=== PATIENT | male | born 1940 | race Caucasian/White ===

== ENCOUNTER 2019-05-06 19:54 | Inpatient (IN) | payer MEDICARE, BC ==
[~2019-05-06] VITALS: Ht 182.9 cm; Wt 73.5 kg
--- NOTE | 2019-05-06 20:10 | NUR ---
PT [id number] C/O GENERALIZED WEAKNESS, AND PT STATES BREEN CATHETER IS "CLOGGED." PT AXO3. RESPIRATIONS EVEN AND UNLABORED. PT STATES HE FEELS, "WEAK". PT PUT ON THE EXTERIOR INTERIOR SPECIALIST AND PULSE OX.
[2019-05-06] MEDS ORDERED: IV NS 0.9% 1,000 ML BAG IV ONE ×2 (20:30→22:00)
[2019-05-06 20:52] LABS: BASOPHILS % (AUTO) 0.2 % (0.0-2.0); HEMATOCRIT 43 % (39-51); HEMOGLOBIN 13.9 g/dL (13.5-17.5); LYMPHOCYTES # (AUTO) 0.6 /CMM (0.8-4.8); LYMPHOCYTES % (AUTO) 3.8 % (20.0-44.0); MEAN CORPUSCULAR HGB CONC 33 g/dl (31.0-36.0); MEAN CORPUSCULAR VOLUME 88 fL (80-96); MONOCYTES % (AUTO) 6.5 % (2.0-12.0); NEUTROPHILS # (AUTO) 14.4 /CMM (1.8-8.9); NEUTROPHILS % (AUTO) 89.5 % (43.0-81.0); PLATELET COUNT (AUTO) 225 /CMM (150-450); RED BLOOD CELL COUNT(AUTO) 4.86 MIL/uL (4.5-6.0); WHITE BLOOD COUNT (AUTO) 16.1 K/uL (4.3-11.0)
--- NOTE | 2019-05-06 20:54 | NUR ---
XRAY AT BEDSIDE.
[2019-05-06 21:06] LABS: CALCIUM, SERUM 9.6 mg/dL (8.5-10.1); CARBON DIOXIDE 26 mmol/L (21-32); CHLORIDE 106 mmol/L (98-107); CREATININE 1.8 mg/dL (0.6-1.3); GLUCOSE 123 mg/dL (74-106); POTASSIUM 4.3 mmol/L (3.5-5.1); SODIUM SERUM 145 mmol/L (136-145); UREA NITROGEN, BLOOD 28 mg/dL (7-18)
[2019-05-06 21:15] LABS: ALANINE AMINOTRANSFERASE 24 U/L (12-78); ALKALINE PHOSPHATASE 84 U/L (46-116); ASPARTATE AMINOTRANSFERASE 18 U/L (15-37); BILIRUBIN,DIRECT 0.3 mg/dL (0.0-0.2); BILIRUBIN,TOTAL 1.1 mg/dL (0.2-1.0); LIPASE 74 U/L (73-393); TOTAL PROTEIN, SERUM 7.6 g/dL (6.4-8.2)
--- NOTE | 2019-05-06 21:30 | NUR ---
PT RESTING IN BED, NAD NOTED. WILL CONTINUE TO MONITOR.
[2019-05-06 21:36] LABS: APPEARANCE,URINE TURBID (CLEAR); BILIRUBIN,URINE NEGATIVE (NEGATIVE); BLOOD, URINE 3+ Ery/uL (NEGATIVE); COLOR,URINE DARK YELLO (YELLOW); KETONES,URINE TRACE (NEGATIVE); LEUKOCYTE ESTERASE ,URINE 3+ (NEGATIVE); NITRITE, URINE POSITIVE (NEGATIVE); PH,URINE 8.5 (5.0-8.0); PROTEIN,URINE 3+ mg/dl (NEGATIVE); UGLUCOSE NEGATIVE (NEGATIVE); UROBILINOGEN,URINE 0.2 EU/dL (0.2)
[2019-05-06] MEDS ORDERED: AZITHROMYCIN 500 MG in IV D5W 250 ML IV STA (21:43)
[2019-05-06] MEDS ORDERED: CEFTRIAXONE 1 G in IV D5W 50 ML IV STA (21:43)
[2019-05-06 21:49] LABS: BACTERIA,URINE 4+ /HPF (None Seen); RBC,URINE 81-100 /HPF (0-2); WBC,URINE 81-100 /HPF (0-3)
[2019-05-06 21:50] LABS: SQUAMOUS EPITHELIAL CELL,UR 0-2 /HPF (None Seen)
[2019-05-06] MEDS ORDERED: CEFTRIAXONE 1GM BAG (ER ONLY) 50 ML IV ONE (22:09)
[2019-05-06] MEDS ORDERED: AZITHROMYCIN 500 MG VIAL ONE (22:34)
--- NOTE | 2019-05-06 22:36 | NUR ---
CALLED NURSING SIGN MANUFACTURER FOR TELE BED
--- NOTE | 2019-05-06 23:18 | NUR ---
325-2 TELE - UPDATED BED
--- NOTE | 2019-05-06 23:33 | NUR ---
REPORT GIVEN TO LILLIAN CARRION FOR BRITTANY.
[2019-05-06 23:50] VITALS: BP 144/75
--- NOTE | 2019-05-06 23:50 | NUR ---
AUTOMOTIVE LOT ATTENDANTGARMENT LOOPER NOTES Received patient from ER via [facility] assisted by 2 ER staff. Admitted on TELE 325-2 due to UTI with Sepsis under the service of Dr. Amber Babin. Transferred patient to bed comfortably. Put on O2 via mask @ 4LPM, saturating 91%. With minimal SOB with use of accessory muscles noted. With FC with hematuria noted. With patent peripheral IV line R wrist G#20, SL. Admission routine done. Cleaned up patient, noted with thick skin, dried fecal matter on sacrum, foul smelling. Per patient he lives with sister but he takes care of himself only. Patient is noted with self-care deficit. Admission ordered noted and carried. Kept patient clean, dry and comfortable. Call light within easy reach. Will continue to monitor accordingly.
[2019-05-07] VITALS (7 sets, daily range): BP systolic 114–162; BP diastolic 66–81
[2019-05-07] MEDS ORDERED: ONDANSETRON HCL/PF 4 MG/2 ML VIAL IVP PRN
[2019-05-07] MEDS ORDERED: ZOLPIDEM TARTRATE 5 MG TABLET PO PRN
[2019-05-07] MEDS ORDERED: MAG HYDROX/AL HYDROX/SIMETH 30 ML UDC PO PRN
[2019-05-07] MEDS ORDERED: Z GUARD REMEDY 2 OZ OINT TP PRN
[2019-05-07] MEDS: IV NS 0.9% 1,000 ML IV PRN ×2 (00:08→12:10)
[2019-05-07 06:13] LABS: ALANINE AMINOTRANSFERASE 17 U/L (12-78); ALBUMIN 2.9 g/dL (3.4-5.0); ALKALINE PHOSPHATASE 62 U/L (46-116); ASPARTATE AMINOTRANSFERASE 18 U/L (15-37); CALCIUM, SERUM 8.3 mg/dL (8.5-10.1); CARBON DIOXIDE 23 mmol/L (21-32); CHLORIDE 112 mmol/L (98-107); CREATININE 1.3 mg/dL (0.6-1.3); GLUCOSE 107 mg/dL (74-106); MAGNESIUM 1.8 mg/dL (1.8-2.4); POTASSIUM 3.8 mmol/L (3.5-5.1); SODIUM SERUM 147 mmol/L (136-145); TOTAL PROTEIN, SERUM 5.7 g/dL (6.4-8.2); UREA NITROGEN, BLOOD 25 mg/dL (7-18)
[2019-05-07 06:16] LABS: BASOPHILS % (AUTO) 0.2 % (0.0-2.0); EOSINOPHILS % (AUTO) 0.2 % (0.0-6.0); HEMATOCRIT 37 % (39-51); HEMOGLOBIN 12.1 g/dL (13.5-17.5); LYMPHOCYTES # (AUTO) 1.1 /CMM (0.8-4.8); LYMPHOCYTES % (AUTO) 9.9 % (20.0-44.0); MEAN CORPUSCULAR HGB CONC 33 g/dl (31.0-36.0); MEAN CORPUSCULAR VOLUME 88 fL (80-96); MONOCYTES # (AUTO) 0.8 /CMM (0.1-1.30); MONOCYTES % (AUTO) 6.6 % (2.0-12.0); NEUTROPHILS # (AUTO) 9.7 /CMM (1.8-8.9); NEUTROPHILS % (AUTO) 83.1 % (43.0-81.0); PLATELET COUNT (AUTO) 168 /CMM (150-450); RED BLOOD CELL COUNT(AUTO) 4.13 MIL/uL (4.5-6.0); WHITE BLOOD COUNT (AUTO) 11.6 K/uL (4.3-11.0)
[2019-05-07 06:25] LABS: CHOLESTEROL 164 mg/dL (<200); HDL CHOLESTEROL 44 mg/dL (40-60); LDL 109 mg/dL (0-99); TRIGLYCERIDES 52 mg/dL (30-150)
--- NOTE | 2019-05-07 06:51 | NUR ---
BOW REPAIRER CUSTOM CLOSING NOTES Patient asleep with O2 mask @ 4LPM, no SOB/respiratory distress noted. No new complaints made. All due meds given as ordered, no ASE noted. With FC indwelling well, with hematuria noted 1000cc within the shift. Kept clean, dry and comfortable. Call light within easy reach. Endorsed to the next shift. Addendum: 05/07/19 at 0652 by LILLIAN [place] RN On tele monitor with SR with inverted T-wave.
[2019-05-07] MEDS ORDERED: METO-357 PO (07:31)
[2019-05-07] MEDS ORDERED: WARF-58 PO (07:31)
[2019-05-07] MEDS ORDERED: DILT240C2 PO (07:31)
--- NOTE | 2019-05-07 07:46 | NUR ---
CLEAN RICE GRADER AND REEL TENDER OPENING NOTES RECEIVED PATIENT ASLEEP IN BED. NO ACUTE SIGNS OF DISTRESS. ON OXYGEN 4L VIA FACE MASK, BREATHING EVEN AND UNLABORED. ON TELE MONITORING WITH CURRENT READING OF SR WITH INVERTED T-WAVE WITH HR OF 70'S, NO C/O CARDIAC DISTRESS VOICED AT THIS TIME. IV ACCESS ON RIGHT WRIST #20 INTACT AND PATENT IVF OF NS @100 ML/HR INFUSING, NO S/S OF INFILTRATION AT SITE NOTED. PATIENT WITH BREEN CATHETER IN PLACE, REMAINS WITH HEMATURIA NOTED. SAFETY MEASURES IN PLACE. BED IN LOW LOCKED POSITION WITH SIDE RAILS UP X2. CALL LIGHT WITHIN EASY REACH. WILL CONTINUE TO MONITOR PT ACCORDINGLY.
--- NOTE | 2019-05-07 09:45 | NUR ---
RN NOTES SPO2 CHECKED AND NOTED 99% ON FACE MASK @4L/PM. NO SOB NOTED. PATIENT WAS PLACED TO NC @4LPM. TOLERATING WELL WITH SPO2 OF 96-98% AT THIS TIME. WILL CONTINUE TO MONITOR.
--- NOTE | 2019-05-07 12:15 | NUR ---
RN NOTES PATIENT WAS SEEN BY DR. PIERRE, INFORMED THAT PATIENT HAD MILD HEMATURIA AND INR OF 3.09 THIS MORNING, ASKED IF TO CONTINUE WARFARIN PO DAILY AND SAID YES AND TO FLUSH F/C PRN. INFORMED ALSO DR TO DO MED RECON. WILL CONTINUE TO MONITOR.
--- NOTE | 2019-05-07 12:58 | NUR ---
RN NOTES PATIENT REQUESTED A COPY OF BLOOD WORKS AND URINALYSIS RESULTS, AUTHORIZATION TO RELEASE MEDICAL RECORD OBTAINED AND SIGNED BY PATIENT.
--- NOTE | 2019-05-07 13:15 | NUR ---
RN NOTES FLUSHED F/C, NO HEMATURIA NOTED. WILL CONTINUE TO MONITOR.
--- NOTE | 2019-05-07 15:37 | NUR ---
RN NOTES PT/OT CAME TO DO EVALUATION BUT HELD EVALUATION DUE TO HIGH AND UPTREND TROPONIN LEVEL UPON CHART REVIEW. WILL CONTINUE TO MONITOR.
--- NOTE | 2019-05-07 16:14 | NUR ---
RN NOTES PATIENT NOTED WITH BP OF 162/81 MMHG AND SPO2 OF 88% ON NC 4L, PATIENT PLACED ON FACE MASK @4LPM SPO2 WENT UP TO 91-92%. MD MADE AWARE WITH ORDERS TO GIVE NORVASC 10 MG PO, 1ST DOSE NOW AND DAILY. WILL CONTINUE TO MONITOR.
[2019-05-07] MEDS: AMLODIPINE BESYLATE 10 MG TABLET PO SCH (16:31)
[2019-05-07] MEDS: WARFARIN SODIUM 1 MG TABLET PO SCH (16:33)
[2019-05-07] MEDS: ACETAMINOPHEN 325 MG TABLET PO PRN (17:05)
--- NOTE | 2019-05-07 18:54 | NUR ---
MILITARY COOK CLOSING NOTES PATIENT AWAKE AND RESTING IN BED AT MODERATE HIGH BACK REST POSITION. A/O X3. ABLE TO MAKE NEEDS KNOWN. SISTER ON BEDSIDE. ON FACE MASK 4LPM WITH SPO2 OF 95% TOLERATING WELL WITH NO SOB NOTED AT THIS TIME. IV ACCESS ON RIGHT WRIST G#20 PATENT AND INTACT, NS @100 ML/HR INFUSING WELL, NO S/S OF INFILTRATION NOTED. ON TELE MONITORING WITH SR WITH INVERTED T-WAVE, HR ON 80'S/ NO CARDIAC DISTRESS VOICED. PATIENT WITH F/C, PATENT AND INTACT, MILD HEMATURIA NOTED. BREEN CARE DONE. ALL NEEDS AND CARE ATTENDED WELL. SAFETY MEASURES KEPT IN PLACE. BED IN LOW LOCKED POSITION WITH SIDE RAILS X2. BEDSIDE TABLE AND CALL LIGHT WITHIN REACH. WILL ENDORSE TO TRACK LAYER HEAD NURSE FOR BRITTANY.
[2019-05-07] MEDS: CEFTRIAXONE 1 G in IV D5W 50 ML IV SCH (20:38)
[2019-05-07 23:10] LABS: ABG BASE EXCESS -4.3 mmol/L; ABG OXYGEN SATURATION 96.1 % (92.0-98.5); ABG PCO2 23.4 mmHg (35.0-45.0); ABG PH 7.484 (7.350-7.450); AaDO2 607.6 mmHg; COHb 0.4 % (0.5-1.5); MetHb 0.7 % (0.0-1.5); SITE, ABG Left Radial; VENT MODE, BG 100% NON REBREATHER
--- NOTE | 2019-05-07 23:15 | NUR ---
TELE CIGARETTE PACKAGE EXAMINER INITIAL NOTES RECEIVED REPORT FROM REGISTRY NURSE MIRNA FOR CONTINUITY OF CARE. SEEN PT IN BED RESTING WITH [id number] MASK ON 10 LITERS AND 98 % O2 SAT. TELE SINUS RHYTHM WITH PA'CS AND PVC'S HEART RATE 78 PER MONITOR. STAT ABG ORDERED BY THE CHARGE NURSE AND RESULT CAME OUT AND NOTIFY CELL ROOM SUPERVISOR MD. GOT ORDERED TO CONTINUE NON-RE -BREATHER MASK FOR NOW AND NEURO CHECKED Q 2HRS AND RE- CHECK THE ABG AFTER 3 HRS. KEPT HIM COMFORTABLE AT ALL TIMES. PLACE CALL LIGHT AT REACH. WILL CONTINUE MONITORING.
--- NOTE | 2019-05-07 23:35 | NUR ---
RN NOTES PAGED DR. DE LOS SANTOS AND INFORMED HIM THE RESULT OF ABG'S , PT. pCO2 IS 23.4 ON NON-REBREATHER, DR. DE LOS SANTOS ORDER TO REPEAT ABG'S AFTER 2-3 HRS AND NEURO CHECK EVERY 2 HRS. AND KEEP O2 SAT 95%... ORDER NOTED AND CARRIED OUT
--- NOTE | 2019-05-08 00:25 | NUR ---
TELE COMPOSITION ROOFER NOTES CHECKED PT HE'S AWAKE AND ALERT STILL ON NON-RE BREATHER MASK O2 SAT 95 % . STILL COUGHING ON AND OFF AND VITAL SIGNS FF BP 178/89 , PULSE 102 TEMP 98.4 RESPIRATION 22 . SKIN WARM TO TOUCH. NOTIFY TUCKING MACHINE OPERATOR MD.
[2019-05-08 00:26] VITALS: BP 178/89
[2019-05-08 00:30] VITALS: BP 184/95
--- NOTE | 2019-05-08 00:55 | NUR ---
TELE SUPERVISOR FUR FLOOR WORKER NOTES GOT ORDERED FROM DR MCGILL NOTED AND CARRIED OUT. CLONIDINE PO GIVEN 0.1 MG ORDERED. BP 189/98 HEART RATE 102. PT TOLERATED WELL NO ASPIRATION NOTED. WILL CONTINUE MONITORING.
[2019-05-08] MEDS ORDERED: CLONIDINE HCL 0.1 MG TABLET PO PRN (01:00)
[2019-05-08 03:02] LABS: ABG BASE EXCESS -1.6 mmol/L; ABG OXYGEN SATURATION 97.4 % (92.0-98.5); ABG PCO2 28.3 mmHg (35.0-45.0); ABG PH 7.483 (7.350-7.450); ABG PO2 97.2 mmHg (75.0-100.0); AaDO2 587.5 mmHg; COHb 0.4 % (0.5-1.5); MetHb 0.5 % (0.0-1.5); O2Hb 96.5 % (94.0-97.0); SITE, ABG Left Radial; VENT MODE, BG 100% NON REBREATHER
[2019-05-08 04:00] VITALS: BP 145/87
--- NOTE | 2019-05-08 04:00 | NUR ---
TELE CRYSTAL GROWING TECHNICIAN NOTES RE- CHECKED VITAL SIGNS FF. BP 145/87, PULSE 80, RESP 20, TEMP 98.2 AND O2 SAT 97%. PT RESTING WITH EYES CLOSED BUT STILL ON NON-REBREATHER MASK. KEPT HIM COMFORTABLE AT ALL TIMES.
--- NOTE | 2019-05-08 05:30 | NUR ---
RN NOTES spoke to Dr. Babin and informed him the result of patient ABG'S pCO2- from 23.4 - 28.3 and RT is suggesting if we can try to put patient on HI flow because pt. is on non-rebreather.. Dr Babin gave us an order.. order noted and carried out
--- NOTE | 2019-05-08 06:00 | NUR ---
TELE METALWORKER NOTES MORNING CARE DONE WELL SKIN TREATMENT , NO SIGNS OF ANY DISTRESS NOTED , PT STILL ON NON-REBREATHER MASK .AFTER CHARGE NURSE SPOKE TO DR MCGILL RESPIRATORY THERAPY CAME TO START THE HIGH FLOW O2 ORDERED AFTER SECOND ABG TEST DONE. BUT PATIENT STILL ON LOW OXYGEN LEVEL SO THEY DECIDED TO PUT THE NON-REBREATHER MASK , CHARGE NURSE RICKEY AWARE. KEPT PT ON SEMI FOWLERS POSITION . TELE SINUS RHYTHM WITH PVC'S WITH PAC'S . WILL CONTINUE MONITORING.
[2019-05-08 06:49] LABS: BASOPHILS % (AUTO) 0.2 % (0.0-2.0); EOSINOPHILS % (AUTO) 0.1 % (0.0-6.0); HEMATOCRIT 35 % (39-51); HEMOGLOBIN 11.3 g/dL (13.5-17.5); LYMPHOCYTES # (AUTO) 0.9 /CMM (0.8-4.8); LYMPHOCYTES % (AUTO) 7.6 % (20.0-44.0); MEAN CORPUSCULAR HGB CONC 33 g/dl (31.0-36.0); MEAN CORPUSCULAR VOLUME 89 fL (80-96); MONOCYTES # (AUTO) 0.6 /CMM (0.1-1.30); MONOCYTES % (AUTO) 4.9 % (2.0-12.0); NEUTROPHILS # (AUTO) 10.4 /CMM (1.8-8.9); NEUTROPHILS % (AUTO) 87.2 % (43.0-81.0); PLATELET COUNT (AUTO) 144 /CMM (150-450); RED BLOOD CELL COUNT(AUTO) 3.91 MIL/uL (4.5-6.0); WHITE BLOOD COUNT (AUTO) 11.9 K/uL (4.3-11.0)
[2019-05-08 06:55] LABS: ALANINE AMINOTRANSFERASE 17 U/L (12-78); ALBUMIN 2.5 g/dL (3.4-5.0); ALKALINE PHOSPHATASE 55 U/L (46-116); ASPARTATE AMINOTRANSFERASE 38 U/L (15-37); BILIRUBIN,TOTAL 1.2 mg/dL (0.2-1.0); CALCIUM, SERUM 7.6 mg/dL (8.5-10.1); CARBON DIOXIDE 24 mmol/L (21-32); CHLORIDE 110 mmol/L (98-107); GLUCOSE 120 mg/dL (74-106); MAGNESIUM 1.6 mg/dL (1.8-2.4); PHOSPHORUS 2.5 mg/dL (2.5-4.9); POTASSIUM 3.7 mmol/L (3.5-5.1); SODIUM SERUM 143 mmol/L (136-145); TOTAL PROTEIN, SERUM 5.4 g/dL (6.4-8.2); UREA NITROGEN, BLOOD 15 mg/dL (7-18)
--- NOTE | 2019-05-08 07:27 | NUR ---
TELE PLASMA TABLE OPERATOR CLOSING NOTES PT RESTING COMFORTABLY IN BED WITHOUT ANY DISTRESS NOTED. IVF NS AT 100ML/HR INFUSING ON HIS RIGHT FOREARM, PATENT AND INTACT. ALL DUE MEDS GIVEN AND ALL NEEDS MET. TELE SINUS RHYTHM WITH PVC'S AND PAC'S PER MONITOR. BREEN TO GRAVITY WITH ARNULFO COLORED URINE . KEPT HIM WARM AND COMFORTABLE AT ALL TIMES. KEPT HIM ON HOB ELEVATED WITH SIDE RAILS UP AND PLACE CALL LIGHT AT REACH,. ENDORSE TO AM NURSE FOR CONTINUITY OF CARE.
--- NOTE | 2019-05-08 07:28 | NUR ---
DIRECT CARE WORKER OPENING NOTES PATIENT AWAKE AND RESTING IN BED AT MODERATE HIGH BACK REST POSITION. A/O X3. ON NON-REBREATHER MASK 15LPM WITH SPO2 OF 99 - 100% TOLERATING WELL WITH NO SOB NOTED AT THIS TIME. IV ACCESS ON RIGHT WRIST G#20 PATENT AND INTACT, NS @100 ML/HR INFUSING WELL, NO S/S OF INFILTRATION NOTED. ON TELE MONITORING WITH SR WITH PVC'S WITH PAC'S, HR ON 70'S/ NO CARDIAC DISTRESS NOTED AT THIS TIME. PATIENT WITH F/C, PATENT AND INTACT, MILD HEMATURIA NOTED. BED IN LOW LOCKED POSITION WITH SIDE RAILS X2. CALL LIGHT WITHIN REACH. WILL CONTINUE TO MONITOR.
[2019-05-08 08:00] VITALS: BP 125/55
[2019-05-08] MEDS: DILTIAZEM HCL CD 240 MG PO SCH (09:00)
[2019-05-08] MEDS ORDERED: WARFARIN SODIUM 5 MG TABLET PO SCH (09:00)
[2019-05-08] MEDS: AMLODIPINE BESYLATE 10 MG TABLET PO SCH (09:00)
[2019-05-08] MEDS: METOPROLOL SUCCINATE 50 MG TAB.SR.24H PO SCH (09:00)
[2019-05-08] MEDS: ACETAMINOPHEN 325 MG TABLET PO PRN (09:27)
[2019-05-08] MEDS: Magnesium 1GM/D5W 100ML PREMIX 100 ML IV SCH ×2 (09:41→10:45)
--- NOTE | 2019-05-08 10:22 | NUR ---
Social service consult requested by Dr. Garcia due to pt. residing alone and is taken care of by the sister. Pt. is a 78 year old male who was admitted to [facility] for sepsis. Pt. resides along and his sister is his caregiver. However, pt's sister is not well medically. Pt. is in need of SNF placement. SW referred consult to machine adjuster leader case trim Maite Castro for SNF placement.
--- NOTE | 2019-05-08 10:51 | NUR ---
RN NOTES PATIENT NOTED WITH LOW MAGNESIUM LEVEL 1.6 TODAY. ADMINISTERED 1 G/100ML IVPB X 2 DOSES. WILL CONTINUE TO MONITOR.
--- NOTE | 2019-05-08 12:07 | NUR ---
WOUND CARE CONSULT: PT EATING AT THIS TIME. SKIN ASSESSMENT TO BE DONE AT ANOTHER TIME. RECOMMENDATIONS MADE FOR SKIN PROTECTION. DISCUSSED WITH NURSING STAFF.
--- NOTE | 2019-05-08 13:15 | NUR ---
RN NOTES F/C CATHETER NOTED WITH LOTS OF SMALL SEDIMENTS AND LIGHT PINKISH COLORED. FLUSH WITH 100 ML OF NS ORDERED PRN. WILL CONTINUE TO MONITOR
--- NOTE | 2019-05-08 14:17 | NUR ---
RN NOTES AUTHORIZATION FOR USE OR DISCLOSURE OF HEALTH INFORMATION UNTIL HE IS DISCHARGE OBTAINED AND SIGNED BY PATIENT, CONSENT PLACED ON PATIENT CHART.
[2019-05-08] MEDS: IV NS 0.9% 1,000 ML IV PRN (15:41)
[2019-05-08 16:00] VITALS: BP 128/82
--- NOTE | 2019-05-08 16:07 | NUR ---
RN NOTES X-RAY RESULTS RECEIVED AND DR. PIERRE WAS INFORMED. NO NEW ORDERS AT THIS TIME. WILL CONTINUE TO MONITOR.
[2019-05-08] MEDS: WARFARIN SODIUM 1 MG TABLET PO SCH (16:57)
[2019-05-08] MEDS ORDERED: AZITHROMYCIN 250 MG TABLET PO ONE (17:00)
--- NOTE | 2019-05-08 18:33 | NUR ---
MS RN CLOSING NOTES PATIENT AWAKE AND RESTING IN BED AT MODERATE HIGH BACK REST POSITION. A/O X3. SISTER ON BEDSIDE. ON NON-REBREATHER MASK 10LPM WITH SPO2 OF 96% TOLERATING WELL WITH NO SOB NOTED AT THIS TIME. IV ACCESS ON RIGHT WRIST G#20 PATENT AND INTACT, NS @100 ML/HR INFUSING WELL, NO S/S OF INFILTRATION NOTED. PATIENT WITH F/C, PATENT AND INTACT, CLOUDY AND SEDIMENTS NOTED. BED IN LOW LOCKED POSITION WITH SIDE RAILS X2. CALL LIGHT WITHIN REACH. WILL ENDORSE TO MILL RECORDER NURSE FOR BRITTANY.
--- NOTE | 2019-05-08 19:05 | NUR ---
RN PM OPENING NOTE BEDSIDE REPORT RECIEVED FROM BRENT PEREZ RN. PATIENT AWAKE AND RESTING IN BED AT MODERATE HIGH BACK REST POSITION. A/O X3. SISTER ON BEDSIDE. ON NON-REBREATHER MASK 10LPM WITH SPO2 OF 96% TOLERATING WELL WITH NO SOB NOTED AT THIS TIME. POC REVIEWED QUESTIONS CONCERNS ADDRESSED. IV ACCESS ON RIGHT WRIST G#20 PATENT AND INTACT INFUSING NS @100 ML/HR NO S/S OF INFILTRATION NOTED. PATIENT WITH F/C, URINE APPEARS CLOUDY WITH SEDIMENTS PINK. BED IN LOW LOCKED POSITION WITH SIDE RAILS X2. CALL LIGHT WITHIN REACH. VERBALIZED UNDERSTANDING TO CALL FOR ASSISTNACE NEEDED.
[2019-05-08 20:00] VITALS: BP 134/71
[2019-05-08] MEDS: CEFTRIAXONE 1 G in IV D5W 50 ML IV SCH (22:26)
--- NOTE | 2019-05-08 22:56 | NUR ---
non rebreather removed placed on oxygen nc 3 lnc atient found in room wiht non rebreather mask off denid sob. oxygen non rebreather reapplied patient saturating at 99%. nc applied and set to 3lnc patient is saturating at 92% with those settings. will cont to monitor.
[2019-05-09] VITALS (11 sets, daily range): BP systolic 128–144; BP diastolic 70–91
[2019-05-09] MEDS: IV NS 0.9% 1,000 ML IV PRN ×2 (02:38→19:37)
--- NOTE | 2019-05-09 02:52 | NUR ---
spo2 93% on 3lnc. patient denes sob.
[2019-05-09] MEDS: ACETAMINOPHEN 325 MG TABLET PO PRN ×2 (05:45→17:20)
[2019-05-09 07:19] LABS: BASOPHILS % (AUTO) 0.5 % (0.0-2.0); EOSINOPHILS % (AUTO) 2.1 % (0.0-6.0); HEMATOCRIT 30 % (39-51); HEMOGLOBIN 10.1 g/dL (13.5-17.5); LYMPHOCYTES # (AUTO) 0.7 /CMM (0.8-4.8); LYMPHOCYTES % (AUTO) 7.5 % (20.0-44.0); MEAN CORPUSCULAR HGB CONC 34 g/dl (31.0-36.0); MEAN CORPUSCULAR VOLUME 87 fL (80-96); MONOCYTES # (AUTO) 0.5 /CMM (0.1-1.30); MONOCYTES % (AUTO) 5.7 % (2.0-12.0); NEUTROPHILS # (AUTO) 7.4 /CMM (1.8-8.9); NEUTROPHILS % (AUTO) 84.2 % (43.0-81.0); PLATELET COUNT (AUTO) 131 /CMM (150-450); RED BLOOD CELL COUNT(AUTO) 3.43 MIL/uL (4.5-6.0); WHITE BLOOD COUNT (AUTO) 8.7 K/uL (4.3-11.0)
--- NOTE | 2019-05-09 07:30 | NUR ---
BEDSIDE REPORT GIVEN TO EMILIA CARRION. PATIENT SEEN IN BED WITH EYES CLOSED. IV INFUSING TO RIGHT HAND 20 GAUGE. PATIENT IN NO APPAREN DISTRESS. BREATHING IS EVEN AND UNLABORED. Addendum: 05/09/19 at 0750 by TASH WHEELER RN NOTE WRITTEN ON WRONG PATIENT.
--- NOTE | 2019-05-09 07:31 | NUR ---
BEDSIDE REPORT GIVEN TO EMILIA CARRION. PATIENT SEEN IN BED WITH EYES CLOSED. IV INFUSING TO RIGHT HAND 20 GAUGE. PATIENT IN NO APPAREN DISTRESS. BREATHING IS EVEN AND UNLABORED. ON 3LNC . BED DOWN LOCKED SRX3. FALL ALARM IS ACTIVE.
[2019-05-09 07:35] LABS: CALCIUM, SERUM 7.4 mg/dL (8.5-10.1); CARBON DIOXIDE 20 mmol/L (21-32); CHLORIDE 106 mmol/L (98-107); GLUCOSE 135 mg/dL (74-106); PHOSPHORUS 1.9 mg/dL (2.5-4.9); POTASSIUM 3.3 mmol/L (3.5-5.1); SODIUM SERUM 137 mmol/L (136-145); UREA NITROGEN, BLOOD 15 mg/dL (7-18)
--- NOTE | 2019-05-09 08:00 | NUR ---
MS RN OPENING NOTES Received Patient resting and asleep in bed. A/O x 3. VS stable with no acute distress. Breathing even and unlabored on 3LPM via NC with no respiratory distress. No signs and symptoms of pain. Pittman Cath in place and operational with clear sukh coloured urine output noted. 20g PIV on RIGHT HAND clean, dry, intact and flushing well with IVF NS running at 100ml/hr. Safety precautions in place. Bed locked and set to lowest position with side rails x 2 up. Will continue to monitor.
[2019-05-09] MEDS ORDERED: POTASSIUM PHOSPHATE MM 15 MMOL in IV D5W 250 ML IV SCH (08:30)
[2019-05-09] MEDS: AMLODIPINE BESYLATE 10 MG TABLET PO SCH (08:51)
[2019-05-09] MEDS: DILTIAZEM HCL CD 240 MG PO SCH (08:51)
[2019-05-09] MEDS: METOPROLOL SUCCINATE 50 MG TAB.SR.24H PO SCH (08:52)
[2019-05-09] MEDS: POTASSIUM PHOSPHATE MM 7.5 MMOL in IV D5W 100 ML IV SCH ×2 (09:45→12:58)
[2019-05-09] MEDS: WARFARIN SODIUM 1 MG TABLET PO SCH (17:09)
[2019-05-09] MEDS: AZITHROMYCIN 250 MG TABLET PO SCH (17:09)
[2019-05-09] MEDS: LACTOBACILLUS RHAMNOSUS GG 1 EACH CAP.SPRINK PO SCH (17:10)
--- NOTE | 2019-05-09 17:25 | NUR ---
MS RN NOTES Noted Auxillary Temp of 100.4F. Administered 650mg Tylenol at this time. Will continue to monitor.
--- NOTE | 2019-05-09 18:21 | NUR ---
MS RN NOTES Patient SPO2 90% on 10LPM via simple mask. RR-20 BP-147/79 HR-80. Unable to titrate- SPO2 87% on 6LPM. Notified Radha ZHANG. ordered Telemonitoring and ABG labs. Order noted and carried out. Telemonitor reading SR with PAC, HR-87. Temp improved at 98.4F. MD notified of temp as well. Family and friend at bedside. Will continue to monitor.
[2019-05-09 18:56] LABS: ABG BASE EXCESS -3.6 mmol/L; ABG PCO2 22.9 mmHg (35.0-45.0); ABG PH 7.509 (7.350-7.450); ABG PO2 50.2 mmHg (75.0-100.0); AaDO2 639.9 mmHg; COHb 0.3 % (0.5-1.5); MetHb 0.6 % (0.0-1.5); O2Hb 87.2 % (94.0-97.0); SITE, ABG Left Radial
--- NOTE | 2019-05-09 19:02 | NUR ---
MS RN NOTES Notified Radha ZHANG of ABG results and Telemonitor. Fio2 100% and Po2-50. Per , transfer to ICU.
--- NOTE | 2019-05-09 19:25 | NUR ---
SEA AIR LAND OFFICER RCD PT FROM 3W PER REPORT PT NEEDS TO BE PLACED ON HI FLOW OXYGEN. PT IS A/O x2; EXPLAINED PLAN OF CARE TO PT. NSR W/MULT PAC ON MONITOR. SKIN INTACT. CALLED RT FOR HI FLOW.
--- NOTE | 2019-05-09 19:28 | NUR ---
MS CISCO CERTIFIED NETWORK ASSOCIATE NOTES Report given to Esmer CARRION. Transferred Patient to ICU via ACLS. Last VS taken BP-143/80 HR-80 RR-22 Temp-101.5 SPO2 90% on 10LPM via Simple Mask. Patient awake, alert and oriented in ICU. Chart handed to Esmer CARRION.
--- NOTE | 2019-05-09 19:30 | NUR ---
CARPET CLEANING TECHNICIAN PT PLACED ON HIGH FLOW OXYGEN BY RT.
--- NOTE | 2019-05-09 19:45 | NUR ---
REHABILITATION CENTER MANAGER RCD PT HL RESTARTED NS @ 100 ML/HR.
[2019-05-09] MEDS: CEFTRIAXONE 1 G in IV D5W 50 ML IV SCH (21:15)
[2019-05-10] VITALS (27 sets, daily range): BP systolic 116–165; BP diastolic 63–95
[2019-05-10] MEDS: ACETAMINOPHEN 325 MG TABLET PO PRN ×2 (03:32→19:05)
[2019-05-10 04:37] LABS: BASOPHILS # (AUTO) 0.1 /CMM (0.0-0.2); BASOPHILS % (AUTO) 0.5 % (0.0-2.0); EOSINOPHILS % (AUTO) 1.6 % (0.0-6.0); HEMATOCRIT 33 % (39-51); HEMOGLOBIN 11.1 g/dL (13.5-17.5); LYMPHOCYTES # (AUTO) 0.7 /CMM (0.8-4.8); LYMPHOCYTES % (AUTO) 5.9 % (20.0-44.0); MEAN CORPUSCULAR HGB CONC 34 g/dl (31.0-36.0); MEAN CORPUSCULAR VOLUME 87 fL (80-96); MONOCYTES # (AUTO) 0.8 /CMM (0.1-1.30); MONOCYTES % (AUTO) 7.2 % (2.0-12.0); NEUTROPHILS # (AUTO) 9.7 /CMM (1.8-8.9); NEUTROPHILS % (AUTO) 84.8 % (43.0-81.0); PLATELET COUNT (AUTO) 174 /CMM (150-450); RED BLOOD CELL COUNT(AUTO) 3.78 MIL/uL (4.5-6.0); WHITE BLOOD COUNT (AUTO) 11.4 K/uL (4.3-11.0)
[2019-05-10 04:53] LABS: CALCIUM, SERUM 7.8 mg/dL (8.5-10.1); CARBON DIOXIDE 20 mmol/L (21-32); CHLORIDE 106 mmol/L (98-107); CREATININE 0.8 mg/dL (0.6-1.3); GLUCOSE 111 mg/dL (74-106); MAGNESIUM 1.7 mg/dL (1.8-2.4); PHOSPHORUS 2.7 mg/dL (2.5-4.9); POTASSIUM 3.6 mmol/L (3.5-5.1); SODIUM SERUM 138 mmol/L (136-145); UREA NITROGEN, BLOOD 17 mg/dL (7-18)
[2019-05-10] MEDS: IV NS 0.9% 1,000 ML IV PRN (05:59)
[2019-05-10] MEDS: Magnesium 1GM/D5W 100ML PREMIX 100 ML IV SCH ×2 (08:26→09:40)
[2019-05-10] MEDS: FUROSEMIDE 40 MG/4 ML VIAL IV SCH ×3 (08:26→16:10)
[2019-05-10] MEDS: AMLODIPINE BESYLATE 10 MG TABLET PO SCH (08:27)
[2019-05-10] MEDS: LACTOBACILLUS RHAMNOSUS GG 1 EACH CAP.SPRINK PO SCH ×2 (08:27→16:10)
[2019-05-10] MEDS: DILTIAZEM HCL CD 240 MG PO SCH (08:28)
[2019-05-10] MEDS: POTASSIUM CHLORIDE 20 MEQ TAB.PRT.SR PO SCH ×3 (08:31→12:43)
[2019-05-10] MEDS: METOPROLOL SUCCINATE 50 MG TAB.SR.24H PO SCH (10:02)
--- NOTE | 2019-05-10 11:50 | NUR ---
WOUND CARE CONSULT: PT PRESENTS WITH SACRAL SCARRING AND VERY LONG, THICKENED SHARP TOENAILS, PRESENT ON ADMISSION. RECOMMENDATIONS MADE FOR SKIN PROTECTION. DISCUSSED WITH NURSING STAFF. DR JAIMES AWARE OF REQUEST FOR DPM CONSULT/NAIL CARE. WILL SEE PRN. CURRENT ANDREW SCORE IS 18. MD IN AGREEMENT WITH PLAN OF CARE. Addendum: 05/10/19 at 1151 by LATANYA ABBOTT WNDNU Amended: Links added.
--- NOTE | 2019-05-10 15:44 | NUR ---
RN NOTES 0730-RECEIVED PATIENT FROMR N. PATIENT RESPOND TO VOICE, ORIENTED TO PLACE. DENIES PAIN.REMAINS ON HIGH FLOW 02 (60L/70%). DEEP BREATHING ENCOURAGED.IVF ONGOING, SEEN BY DR. RICARDO MD WITH ORDERS. 1200-PATIENT WITH GOOD DIURESIS NOTED.SISTER AT BEDSIDE, UPDATED HER OF PATIENT STATUS.
[2019-05-10] MEDS: AZITHROMYCIN 250 MG TABLET PO SCH (16:14)
[2019-05-10] MEDS: WARFARIN SODIUM 1 MG TABLET PO SCH (17:40)
[2019-05-10] MEDS: MAGNESIUM HYDROXIDE 30 ML UDC PO PRN (18:22)
--- NOTE | 2019-05-10 19:14 | NUR ---
RN NOTES 1500-HIS SISTER IN THE ROOM ALL TIMES, UPDATED HER OF PATIENT STATUS. PATIENT REMAINS ON HIGH FLOW OXYGEN. DENIES PAIN. 1700-AFEBRILE. 1900-PATIENT AWAKE, DENIES PAIN. REPORT GIVEN TO RN FOR FURTHER CARE
[2019-05-10] MEDS: CEFTRIAXONE 1 G in IV D5W 50 ML IV SCH (21:00)
[2019-05-10] MEDS: GUAIFENESIN/D-METHORPHAN HB 5 ML UDC PO PRN (21:48)
--- NOTE | 2019-05-10 22:12 | NUR ---
PT RECEIVED AWAKE ON HFNC 60L, 60% FIO2. NO DISTRESS. PT TOLERATING SETTINGS. WILL CONTINUE TO MONITOR. Addendum: 05/10/19 at 2214 by NATA LOMAX RT Amended: Links added.
[2019-05-11] VITALS (24 sets, daily range): BP systolic 109–147; BP diastolic 42–78
--- NOTE | 2019-05-11 03:42 | NUR ---
STERILE WATER BAG FOR HFNC CHANGED.
[2019-05-11 04:27] LABS: BASOPHILS % (AUTO) 0.6 % (0.0-2.0); EOSINOPHILS % (AUTO) 4.6 % (0.0-6.0); HEMATOCRIT 33 % (39-51); HEMOGLOBIN 11.2 g/dL (13.5-17.5); LYMPHOCYTES % (AUTO) 12.6 % (20.0-44.0); MEAN CORPUSCULAR HGB CONC 34 g/dl (31.0-36.0); MEAN CORPUSCULAR VOLUME 88 fL (80-96); MONOCYTES # (AUTO) 0.6 /CMM (0.1-1.30); MONOCYTES % (AUTO) 8.4 % (2.0-12.0); NEUTROPHILS # (AUTO) 5.6 /CMM (1.8-8.9); NEUTROPHILS % (AUTO) 73.8 % (43.0-81.0); PLATELET COUNT (AUTO) 171 /CMM (150-450); RED BLOOD CELL COUNT(AUTO) 3.76 MIL/uL (4.5-6.0); WHITE BLOOD COUNT (AUTO) 7.5 K/uL (4.3-11.0)
[2019-05-11 04:44] LABS: ALANINE AMINOTRANSFERASE 24 U/L (12-78); ALBUMIN 2.4 g/dL (3.4-5.0); ALKALINE PHOSPHATASE 58 U/L (46-116); ASPARTATE AMINOTRANSFERASE 25 U/L (15-37); CARBON DIOXIDE 29 mmol/L (21-32); CHLORIDE 105 mmol/L (98-107); CREATININE 0.8 mg/dL (0.6-1.3); GLUCOSE 108 mg/dL (74-106); MAGNESIUM 2.1 mg/dL (1.8-2.4); POTASSIUM 3.6 mmol/L (3.5-5.1); SODIUM SERUM 140 mmol/L (136-145); TOTAL PROTEIN, SERUM 5.7 g/dL (6.4-8.2); UREA NITROGEN, BLOOD 19 mg/dL (7-18)
--- NOTE | 2019-05-11 06:35 | NUR ---
DETECTIVE BUREAU CHIEF PT REMAINED ON HI FLOW OXYGEN THERAPY. PT ALERT WITH MOMENTS OF CONFUSION; ATTEMPTED TO GET OOB; REDIRECTED. PT NOTED TALKING AND SEEING THINGS THAT ARE NOT THERE. NSR ON MONITOR. ADEQUATE URINE OUTPUT. NO BM. PRUNE JUICE GIVEN REQUESTED. ROBITUSSIN COUGH MEDICINE GIVEN REQUESTED.
[2019-05-11] MEDS: LACTOBACILLUS RHAMNOSUS GG 1 EACH CAP.SPRINK PO SCH ×2 (08:16→16:42)
[2019-05-11] MEDS: DILTIAZEM HCL CD 240 MG PO SCH (08:16)
[2019-05-11] MEDS: METOPROLOL SUCCINATE 50 MG TAB.SR.24H PO SCH (08:17)
--- NOTE | 2019-05-11 09:38 | NUR ---
RN NOTE 0715: Received patient awake, A/Ox3. On high flow O2 via NC, 60LPM, 60% FIO2, sat 98%. PIVs intact. SB 57, will hold other meds. Pittman cath intact, noted with sukh colored urine drained to BSD. Noted with temp 99.1, provided light weight cover/dressing. 0930: Tolerated diet. No any changes noted at this time. Will continue POC.
--- NOTE | 2019-05-11 14:17 | NUR ---
RN NOTE Made Dr. Garcia aware for having blood still on sputum when coughing. Per MD, no changes on Coumadin regimen, last INR 2.23.
[2019-05-11] MEDS: FUROSEMIDE 40 MG/4 ML VIAL IV SCH (16:42)
[2019-05-11] MEDS: WARFARIN SODIUM 2.5 MG TABLET PO SCH (16:43)
[2019-05-11] MEDS: AZITHROMYCIN 250 MG TABLET PO SCH (16:44)
[2019-05-11] MEDS: GUAIFENESIN/D-METHORPHAN HB 5 ML UDC PO PRN (16:47)
--- NOTE | 2019-05-11 16:54 | NUR ---
RN NOTE With c/o constipation despite of having prune juice often and receiving MOM last night. Made MD aware, obtained order to give enema, made patient aware for the order. Administered enema as ordered. Will monitor.
[2019-05-11] MEDS ORDERED: NA PHOS,M-B/NA PHOS,DI-BA 1 EA ENEMA RC PRN (17:00)
--- NOTE | 2019-05-11 19:35 | NUR ---
RN NOTES RECEIVED PT AWAKE ON BED. WITH HIGH FLOW O2 @ 45 LPM, NO ACUTE RESPIRATORY DISTRESS,SATURATION 97%. AOX3 ABLE TO COMMUNICATE WITH THE NURSE. DENIES PAIN. SR ON TELE MONITOR HR 65. WARMTH TO TOUCH , AFEBRILE. BILATERAL BREATH SOUND DIMINISHED. WITH GOOD PERIPHERAL PULSES. WITH BREEN CATH DRAINED WITH YELLOW COLOR URINE. IV SITE ON RFA G 22 AND LFA G 20 INTACT AND PATENT. T/R PATIENT PT COMFORTABLE. KEPT BED IN LOW POSSIBLE POSITION. BED ALARM ON. CALL LIGHT KEPT WITHIN EASY REACH REMINDED TO USED FOR ASSISTANCE. WILL CONTINUE TO MONITOR.
[2019-05-11] MEDS: CEFTRIAXONE 1 G in IV D5W 50 ML IV SCH (21:11)
[2019-05-12] VITALS (24 sets, daily range): BP systolic 101–153; BP diastolic 56–77
[2019-05-12 04:35] LABS: BASOPHILS # (AUTO) 0.1 /CMM (0.0-0.2); BASOPHILS % (AUTO) 0.9 % (0.0-2.0); EOSINOPHILS % (AUTO) 4.9 % (0.0-6.0); HEMATOCRIT 33 % (39-51); LYMPHOCYTES # (AUTO) 0.8 /CMM (0.8-4.8); MEAN CORPUSCULAR HGB CONC 34 g/dl (31.0-36.0); MEAN CORPUSCULAR VOLUME 88 fL (80-96); MONOCYTES # (AUTO) 0.7 /CMM (0.1-1.30); MONOCYTES % (AUTO) 7.4 % (2.0-12.0); NEUTROPHILS # (AUTO) 7.1 /CMM (1.8-8.9); NEUTROPHILS % (AUTO) 77.8 % (43.0-81.0); PLATELET COUNT (AUTO) 192 /CMM (150-450); RED BLOOD CELL COUNT(AUTO) 3.73 MIL/uL (4.5-6.0); WHITE BLOOD COUNT (AUTO) 9.1 K/uL (4.3-11.0)
[2019-05-12 04:46] LABS: CARBON DIOXIDE 32 mmol/L (21-32); CHLORIDE 101 mmol/L (98-107); CREATININE 0.8 mg/dL (0.6-1.3); GLUCOSE 101 mg/dL (74-106); MAGNESIUM 1.7 mg/dL (1.8-2.4); PHOSPHORUS 3.8 mg/dL (2.5-4.9); POTASSIUM 3.2 mmol/L (3.5-5.1); SODIUM SERUM 139 mmol/L (136-145); UREA NITROGEN, BLOOD 18 mg/dL (7-18)
--- NOTE | 2019-05-12 07:01 | NUR ---
RN NOTES PATIENT IN STABLE CONDITION THROUGHOUT THE SHIFT. AFEBRILE. VSS. CONTINUE ON HIGH FLOW O2 @ 45LPM AND FIO2 45% SATURATION >94%. NO ACUTE RESPIRATORY DISTRESS. PER PATIENT HE FEELS MUCH BETTER TODAY. NO CHANGE OF MENTAL STATUS AOX3 WITH PERIODS OF FORGETFUL. ALL DUE MEDICINE TOLERATED WELL CONTINUE ON IV ATB NO ASE NOTED. IV SITE INTACT AND PATENT. F/C DRAINED ADEQ. VIA GRAVITY. KEPT PT CLEAN AND DRY. WILL CONTINUE TO MONITOR.
--- NOTE | 2019-05-12 07:15 | NUR ---
RECEIVED PATIENT A/OX2-3 AWAKE AND ALERT. DENIES PAIN, SOB, OR DIFFICULTY BREATHING. TOLERATING HIFLOW NASAL CANNULA 45% FI02 AT 98%. PATIENT IV SITES C/D/I/P. PENDING CM CONSULT AND PODIATRY CONSULT. ALL NEEDS IN REACH. PATIENT APPEARS STABLE. SKIN, SAFETY, ASPIRATION PRECAUTIONS IN PLACE AND WILL MONITOR
[2019-05-12] MEDS: LACTOBACILLUS RHAMNOSUS GG 1 EACH CAP.SPRINK PO SCH ×2 (08:28→16:57)
[2019-05-12] MEDS: METOPROLOL SUCCINATE 25 MG TAB.SR.24H PO SCH (08:28)
[2019-05-12] MEDS: DILTIAZEM HCL CD 120 MG PO SCH (08:28)
[2019-05-12] MEDS: FUROSEMIDE 40 MG/4 ML VIAL IV SCH (08:28)
[2019-05-12] MEDS ORDERED: POTASSIUM CHLORIDE 20 MEQ TAB.PRT.SR PO ONE (10:30)
[2019-05-12] MEDS ORDERED: Magnesium 1GM/D5W 100ML PREMIX 100 ML IV SCH (10:30)
[2019-05-12] MEDS ORDERED: Magnesium 1GM/D5W 100ML PREMIX PIGGYBACK IV ONE (10:30)
--- NOTE | 2019-05-12 11:00 | NUR ---
dr arthur at bedside for eval.
[2019-05-12 11:13] LABS: ABG BASE EXCESS 5.5 mmol/L; ABG OXYGEN SATURATION 97.9 % (92.0-98.5); ABG PCO2 36.6 mmHg (35.0-45.0); ABG PH 7.511 (7.350-7.450); ABG PO2 111.3 mmHg (75.0-100.0); AaDO2 167.9 mmHg; COHb 0.3 % (0.5-1.5); MetHb 0.6 % (0.0-1.5); SITE, ABG Right Radial; VENT MODE, BG HI FLOW NC 45%
[2019-05-12] MEDS: AZITHROMYCIN 250 MG TABLET PO SCH (16:57)
[2019-05-12] MEDS: WARFARIN SODIUM 2.5 MG TABLET PO SCH (16:59)
--- NOTE | 2019-05-12 18:22 | NUR ---
per dr katelyn her to order colace per patient request. po bid 100mg colace
--- NOTE | 2019-05-12 18:47 | NUR ---
all due meds given and all needs met. patient vss. tolerating high flow o2 per md order. denies sob, difficulty breathing and no s/s acute distress. skin, safety, aspiration precautions in place and monitored throughout day.
--- NOTE | 2019-05-12 19:10 | NUR ---
care endorsed to elysia emanuel for irina
--- NOTE | 2019-05-12 19:20 | NUR ---
ICU/HAMMERER TAB RECEIVED REPORT FROM DAY NURSE. SEE FLOWSHEET FOR ASSESSMENT, ALONG WITH SOME MINOR SKIN ISSUES THAT PT MAY HAVE ALONG WITH EACH INTERVENTIONS TO EACH OF THESE. PT WAS TURNED AND REPOSITIONED FOR COMFORT AND CARE. WILL CONTINUE TO MONITOR THIS PT. NO ACUTE DISTRESS SEEN AT THIS TIME. CALL LIGHT WITHIN REACH.
[2019-05-12] MEDS: CEFTRIAXONE 1 G in IV D5W 50 ML IV SCH (21:08)
--- NOTE | 2019-05-12 22:15 | NUR ---
ICU/LINING FOLDER PT WAS TURNED AND REPOSITIONED AFTER MILO CARE WAS GIVEN. NO ACUTE DISTRESS SEEN AT THIS TIME. PT APPEARS TO BE RESTING COMFORTABLE. CALL LIGHT WITHIN REACH. WILL CONTINUE TO MONITOR THIS PT.
--- NOTE | 2019-05-12 23:00 | NUR ---
ICU/COAL WASHER TENDER RT DECREASED FIO2 OF THIS PT TO 35% FROM 40% AT 2245. WILL CONTINUE TO MONITOR THIS PT. CALL LIGHT WITHIN REACH.
[2019-05-13] VITALS (25 sets, daily range): BP systolic 99–157; BP diastolic 52–84
--- NOTE | 2019-05-13 02:10 | NUR ---
ICU/BD SPECIAL EDUCATION TEACHER PT WAS GIVEN AM CARE, ALONG WITH ORAL CARE. PT REMAINS ON CURRENT HIGH FLOW OXYGEN SETTINGS. PT WAS TURNED AND REPOSITIONED FOR COMFORT AND CARE. WILL CONTINUE TO MONITOR THIS PT. NO ACUTE DISTRESS SEEN AT THIS TIME
--- NOTE | 2019-05-13 04:10 | NUR ---
ICU/MELTER OPERATOR AM LABS WERE DRAWN, ALONG WITH CXR DONE. AWAIT FOR ANY ABNORMAL LABS.
[2019-05-13 04:20] LABS: BASOPHILS # (AUTO) 0.1 /CMM (0.0-0.2); BASOPHILS % (AUTO) 1.3 % (0.0-2.0); EOSINOPHILS % (AUTO) 6.4 % (0.0-6.0); HEMATOCRIT 32 % (39-51); HEMOGLOBIN 10.9 g/dL (13.5-17.5); LYMPHOCYTES % (AUTO) 12.6 % (20.0-44.0); MEAN CORPUSCULAR HGB CONC 34 g/dl (31.0-36.0); MEAN CORPUSCULAR VOLUME 87 fL (80-96); MONOCYTES # (AUTO) 0.6 /CMM (0.1-1.30); MONOCYTES % (AUTO) 8.1 % (2.0-12.0); NEUTROPHILS # (AUTO) 5.6 /CMM (1.8-8.9); NEUTROPHILS % (AUTO) 71.6 % (43.0-81.0); PLATELET COUNT (AUTO) 220 /CMM (150-450); RED BLOOD CELL COUNT(AUTO) 3.71 MIL/uL (4.5-6.0); WHITE BLOOD COUNT (AUTO) 7.8 K/uL (4.3-11.0)
[2019-05-13 04:28] LABS: CALCIUM, SERUM 8.1 mg/dL (8.5-10.1); CARBON DIOXIDE 32 mmol/L (21-32); CHLORIDE 102 mmol/L (98-107); GLUCOSE 102 mg/dL (74-106); MAGNESIUM 1.9 mg/dL (1.8-2.4); PHOSPHORUS 3.6 mg/dL (2.5-4.9); POTASSIUM 3.8 mmol/L (3.5-5.1); SODIUM SERUM 140 mmol/L (136-145); UREA NITROGEN, BLOOD 18 mg/dL (7-18)
--- NOTE | 2019-05-13 07:10 | NUR ---
MANUSCRIPTS ARCHIVIST OPENING NOTE RECEIVED REPORT FROM PM NURSE. PATIENT IN BED.AXOX4.ON HIGH FLOW OXYGEN 35%.NO SOB NO DISTRESS NOTED.SATURATING 96%.NO EDEMA ON BLE.IV INTACT AND PATENT.BED IS LOW AND IN LOCKED POSITION.CALL LIGHT IN REACH.BED ALARM ON .SRX3.WILL CONTINUE TO MONITOR.
--- NOTE | 2019-05-13 08:09 | NUR ---
PT IS AWAKE AND FOLLOW COMMANDS, PLACED INTO 4 LPM O2 FLOW VIA NASAL CANNULA. HI FLOW NASAL CANNULA ON STD BY @ BEDSIDE. VITAL SIGNS ON POST CHANGES BELOW: SPO2 97 - 98% HR 64 - 68 BPM RR 14 - 19 BPM NO SOB NOTED Addendum: 05/13/19 at 0812 by BASSAM JAMES RT Amended: Links added.
[2019-05-13] MEDS: DOCUSATE SODIUM 100 MG CAPSULE PO SCH ×2 (08:19→17:29)
[2019-05-13] MEDS: LACTOBACILLUS RHAMNOSUS GG 1 EACH CAP.SPRINK PO SCH ×2 (08:19→17:29)
[2019-05-13] MEDS: HYDROCODONE/APAP 5/325MG 1 EACH TABLET PO PRN (08:20)
[2019-05-13] MEDS: DILTIAZEM HCL CD 120 MG PO SCH (08:20)
[2019-05-13] MEDS: GUAIFENESIN/D-METHORPHAN HB 5 ML UDC PO PRN (08:21)
[2019-05-13] MEDS: METOPROLOL SUCCINATE 25 MG TAB.SR.24H PO SCH (09:00)
--- NOTE | 2019-05-13 09:13 | NUR ---
HYDRAULIC PILE HAMMER OPERATOR NOTE SEEN BY .PIANO MECHANIC APPRENTICE,UPDATED ABOUT PATIENT CONDITION.ON O2 4L VIA NASAL CANULA.TOLERATING WELL.NNO.WILL CONTINUE TO MONITOR.
--- NOTE | 2019-05-13 09:26 | NUR ---
PT. IS DOING GOOD IN NASAL CANNULA @ 4 LPM O2 FLOW. SPO2 98%, HR 63 BPM, RR 15 BPM. Addendum: 05/13/19 at 0927 by BASSAM JAMES RT Amended: Links added.
--- NOTE | 2019-05-13 13:14 | NUR ---
BOW STRING MAKER NOTE PATIENT HR DROPS TO 42,STABLE BRADYCARDIA.PATENT ASYMPTOMATIC. MADE AWARE.NNO.WILL CONTINUE TO MONITOR.
[2019-05-13] MEDS: WARFARIN SODIUM 2.5 MG TABLET PO SCH (17:31)
[2019-05-13] MEDS: AZITHROMYCIN 250 MG TABLET PO SCH (17:31)
--- NOTE | 2019-05-13 18:43 | NUR ---
DYED RAW STOCK BLOWER FEEDER CLOSING NOTE PATIENT IN BED.AXOX4.ON O2 4L VIA NASAL CANULA.NO SOB NO DISTRESS NOTED.SATURATING 97%.NO EDEMA ON BLE.IV INTACT AND PATENT.BED IS LOW AND IN LOCKED POSITION.CALL LIGHT IN REACH.BED ALARM ON .SRX3.SISTER WAS AT BEDSIDE.ADDRESSED ALL THE CONCERNS.WILL ENDORSE TO PM NURSE FOR BRITTANY.
--- NOTE | 2019-05-13 19:00 | NUR ---
SHRUB PLANTER NOTES RECEIVED PATIENT AWAKE,ALERT,CONVERSES,COHERENT AND APPROPRIATE,NOT IN ANY DISTRESS WITH O2 VIA NASAL CANNULA @ 4 l/MIN. DENIES ANY PAIN. A LITTLE WEAK BUT ABLE TO MOVE BOTH UPPER AND LOWER EXTREMITIES. COMFORT CARE DONE,NEEDS ATTENDED.
[2019-05-13] MEDS: CEFTRIAXONE 1 G in IV D5W 50 ML IV SCH (21:10)
[2019-05-14] VITALS (18 sets, daily range): BP systolic 111–175; BP diastolic 53–97
--- NOTE | 2019-05-14 | NUR ---
SALES BROKER NOTES REMAINS STABLE, AWAKE,ALERT BUT GETTING A LITTLE CONFUSE.NOTED TO BE COUGHING MORE FREQUENT AND C/O ABDOMINAL DISCOMFORT WHEN COUGHING HARD,PRN MEDS GIVEN .COMFORT MEASURES DONE,NEEDS ATTENDED.STILL TOLERATING NASAL CANNULA WELL,NOT IN ANY DISTRESS.
[2019-05-14] MEDS: ACETAMINOPHEN 325 MG TABLET PO PRN (00:16)
[2019-05-14] MEDS: GUAIFENESIN/D-METHORPHAN HB 5 ML UDC PO PRN (00:17)
--- NOTE | 2019-05-14 04:00 | NUR ---
LAWN SERVICE WORKER NOTES REMAINS STABLE,NOT IN ANY DISTRESS,AM CARE DONE.
--- NOTE | 2019-05-14 07:00 | NUR ---
REPORT GIVEN TO ARGELIA BUSCH RN.PATIENT REMAINS STABLE.
--- NOTE | 2019-05-14 07:00 | NUR ---
RN NOTES RECEIVED PT ON BE, A/Ox2, WITH PERIODS OF CONFUSION , ON 4L O2 N/C , RESPIRATION EVEN AND UNLABORED, ON TELE SB , HR IN 50'S , BREEN DRAINING TO GRAVITY , L AND R FA IV SITES , CLEAN ,DRY AND INTACT, SR UPx3, CALL LIGHT WITHIN EASY REACH, BED LOCKED AND IN LOWEST POSITION, CONTINUE TO MONITOR.
[2019-05-14 07:55] LABS: CALCIUM, SERUM 8.3 mg/dL (8.5-10.1); CARBON DIOXIDE 30 mmol/L (21-32); CHLORIDE 104 mmol/L (98-107); CREATININE 0.9 mg/dL (0.6-1.3); GLUCOSE 95 mg/dL (74-106); POTASSIUM 3.9 mmol/L (3.5-5.1); SODIUM SERUM 141 mmol/L (136-145); UREA NITROGEN, BLOOD 16 mg/dL (7-18)
[2019-05-14] MEDS: DILTIAZEM HCL CD 120 MG PO SCH (08:20)
[2019-05-14] MEDS: DOCUSATE SODIUM 100 MG CAPSULE PO SCH ×2 (08:20→16:20)
[2019-05-14] MEDS: LACTOBACILLUS RHAMNOSUS GG 1 EACH CAP.SPRINK PO SCH ×2 (08:21→16:20)
[2019-05-14] MEDS: METOPROLOL SUCCINATE 25 MG TAB.SR.24H PO SCH (08:21)
[2019-05-14] MEDS: MAGNESIUM HYDROXIDE 30 ML UDC PO PRN (08:23)
--- NOTE | 2019-05-14 09:46 | NUR ---
RN NOTES PT OUT OF BED TO CHAIR WITH ASSIST FOR ABOUT 30 MINUTES , VSS STABLE , O2 SAT 97% ON 3L O2 N/C , PT BACK TO THE BED WITH ASSIST. CONTINUE TO MONITOR
--- NOTE | 2019-05-14 13:00 | NUR ---
ASSEMBLER FINALPLANER OPERATOR NOTES REPORT GIVEN BY SHEYLA KEITH IN ICU.RECEIVED PT TO ROOM 113-2.ALERT/ORIENTED X2 WITH MILD EPISODES OF CONFUSION.ON NC @3L O2,TOLERATING WELL.NO SOB AND ACUTE DISTRESS NOTED.VITAL SIGNS ARE CHECKED. BREEN CATH IS IN PLACE WITH CLEAR YELLOW COLOR URINE.IV LINE IS ON RIGHT HAND G22 AND LEFT HAND G20,SITE IS CLEAN,DRY AND INTACT.NO INFILTRATION NOTED. BED IS IN LOW POSITION AND LOCKED,CALL LIGHT IS WITHIN REACH.WILL CONTINUE TO MONITOR THE PT CLOSELY.
--- NOTE | 2019-05-14 13:10 | NUR ---
RN NOTES LARGE BM NOTED AFTER MOM 30CC PO GIVEN, REPORT GIVEN TO ALYCE RN ON TELE, PT TRANSFERRED TO ROOM 113-2 TELE STATUS VIA ACLS PROTOCOL IN STABLE CONDITION.
[2019-05-14] MEDS: AZITHROMYCIN 250 MG TABLET PO SCH (16:20)
[2019-05-14] MEDS: WARFARIN SODIUM 1 MG TABLET PO SCH (16:27)
[2019-05-14] MEDS ORDERED: WARFARIN SODIUM 2.5 MG TABLET PO SCH (17:00)
--- NOTE | 2019-05-14 18:33 | NUR ---
ABLE BODIED TANKERMAN CLOSING NOTES PT IS LYING ON BED WITH NC 2L O2 CONTINUOUSLY.ALERT/ORIENTED X2.NO SOB AND ACUTE DISTRESS NOTED.IV LINE IS IN PLACE,SL.SITE IS C/D/I.NO INFILTRATION NOTED.RESPIRATION IS EVEN AND NONLABORED.ALL DUE MEDS ARE GIVEN.ENDORSING TO SHELL MOLDING ROLLER BLAST OPERATOR RN FOR BRITTANY.
[2019-05-14] MEDS: HYDROCODONE/APAP 5/325MG 1 EACH TABLET PO PRN (21:03)
[2019-05-14] MEDS: CEFTRIAXONE 1 G in IV D5W 50 ML IV SCH (21:04)
--- NOTE | 2019-05-14 21:05 | NUR ---
RN NOTE COMPLAINS OF GENERALIZED PAIN, BP 175/85, ADMINISTERED PAIN MEDICATION ORDERED
[2019-05-15] VITALS: BP 136/73
[2019-05-15 04:00] VITALS: BP 139/55
[2019-05-15 06:24] LABS: BASOPHILS # (AUTO) 0.1 /CMM (0.0-0.2); EOSINOPHILS % (AUTO) 3.9 % (0.0-6.0); HEMATOCRIT 33 % (39-51); LYMPHOCYTES # (AUTO) 1.1 /CMM (0.8-4.8); LYMPHOCYTES % (AUTO) 13.5 % (20.0-44.0); MEAN CORPUSCULAR HGB CONC 34 g/dl (31.0-36.0); MEAN CORPUSCULAR VOLUME 88 fL (80-96); MONOCYTES # (AUTO) 0.6 /CMM (0.1-1.30); MONOCYTES % (AUTO) 7.6 % (2.0-12.0); PLATELET COUNT (AUTO) 260 /CMM (150-450); RED BLOOD CELL COUNT(AUTO) 3.75 MIL/uL (4.5-6.0); WHITE BLOOD COUNT (AUTO) 8.1 K/uL (4.3-11.0)
--- NOTE | 2019-05-15 07:00 | NUR ---
MOBILITY ARCHITECT OPENING NOTES RECEIVED PT LYING ON BED.ALERT/ORIENTED X2 WITH MILD EPISODES OF CONFUSION.ON NC @3L O2,TOLERATING WELL.NO SOB AND ACUTE DISTRESS NOTED.VITAL SIGNS ARE CHECKED. BREEN CATH IS IN PLACE WITH CLEAR YELLOW COLOR URINE.IV LINE IS ON RIGHT HAND G22 AND LEFT HAND G20,SITE IS CLEAN,DRY AND INTACT.NO INFILTRATION NOTED. BED IS IN LOW POSITION AND LOCKED,CALL LIGHT IS WITHIN REACH.WILL CONTINUE TO MONITOR THE PT CLOSELY. Addendum: 05/15/19 at 0739 by ALYCE ODOM RN ON TELE HR IS 58 WITH SINUS BRADYCARDIA,ASYMPTOMATIC.
[2019-05-15 07:03] LABS: CALCIUM, SERUM 8.5 mg/dL (8.5-10.1); CARBON DIOXIDE 30 mmol/L (21-32); CHLORIDE 102 mmol/L (98-107); CREATININE 0.9 mg/dL (0.6-1.3); GLUCOSE 96 mg/dL (74-106); MAGNESIUM 2.1 mg/dL (1.8-2.4); POTASSIUM 3.9 mmol/L (3.5-5.1); SODIUM SERUM 138 mmol/L (136-145); UREA NITROGEN, BLOOD 14 mg/dL (7-18)
[2019-05-15 08:00] VITALS: BP 134/75
[2019-05-15] MEDS: DOCUSATE SODIUM 100 MG CAPSULE PO SCH ×2 (08:18→16:41)
[2019-05-15] MEDS: LACTOBACILLUS RHAMNOSUS GG 1 EACH CAP.SPRINK PO SCH ×2 (08:19→16:41)
[2019-05-15] MEDS: DILTIAZEM HCL CD 120 MG PO SCH (08:19)
[2019-05-15] MEDS: METOPROLOL SUCCINATE 25 MG TAB.SR.24H PO SCH (08:19)
[2019-05-15] MEDS ORDERED: METO25TA3 PO (11:04)
[2019-05-15] MEDS ORDERED: DILT120C87 PO (11:04)
[2019-05-15] MEDS ORDERED: CEFT1VIA15 IV (11:04)
[2019-05-15 12:00] VITALS: BP 129/63
[2019-05-15] MEDS: FUROSEMIDE 40 MG/4 ML VIAL IV SCH ×2 (12:28→16:41)
[2019-05-15] MEDS: POTASSIUM CHLORIDE 20 MEQ TAB.PRT.SR PO SCH ×3 (12:29→14:41)
[2019-05-15 16:00] VITALS: BP 130/57
[2019-05-15] MEDS: AZITHROMYCIN 250 MG TABLET PO SCH (16:40)
[2019-05-15] MEDS: WARFARIN SODIUM 1 MG TABLET PO SCH (16:52)
--- NOTE | 2019-05-15 17:15 | NUR ---
FILE CLERK DATA ENTRY NOTES CALLED CANDICE MOLINA TO GIVE THE REPORT,SPOKE WITH PATRICK.SHE SAID THE NURSING MANAGER REQUIREMENTS WILL CALL US BACK TO GET PATIENT REPORT,WAITING FOR THE CALL BACK.
--- NOTE | 2019-05-15 18:00 | NUR ---
HOT DOG VENDOR NOTES CALLED CANDICE MOLINA TO GIVE THE REPORT,COULDN'T ABLE TO SPEAK WITH ANYONE.
--- NOTE | 2019-05-15 18:00 | NUR ---
CLOTH EXAMINER NOTES COREEN ISSA ORDERED TO DISCHARGE PT TO [facility] WITH COUMADIN 5MG PO TAB DAILY.PT'S RESPONSIBLE [employer]IANCE PARTY FAVIO,SISTER IS NOT AGREE WITH THAT DOSE.ACCORDING TO HER,THE DOSE COUMADIN 5MG IS TOO HIGH FOR THE PT AND SHE PREFERS 2.5-3MG DAILY INSTEAD OF 5MG DAILY AND SHE WANTS TO CHANGE THE DOSE BEFORE GETTING DISCHARGE.COREEN HORTON(COVERING FOR CORPORATE ADMINISTRATIVE ASSISTANT GABBY HE IS OUT OF TOWN)MADE AWARE AND HE INITIALLY SAID CONTINUE WITH THE ORDER FOR COREEN PIERRE AND THEN HE IS OK TO GIVE TELEPHONE ORDER OF COUMADIN 5MG TOMORROW,05/16/19 AND CHECK PT/INR ON 05/17/19 BEFORE ADMINISTERING THAT DAY DOSAGE.SOON,CHARGE NURSE MADE AWARE,NURSING APPLIANCE REPAIRER FIDEL MADE AWARE.FAMILY MADE AWARE.
--- NOTE | 2019-05-15 18:30 | NUR ---
INSPECTING AND TESTING LEAD HAND NOTES CALLED CANDICE MOLINA TO GIVE THE REPORT,COULDN'T ABLE TO SPEAK TO ANYONE.
--- NOTE | 2019-05-15 19:30 | NUR ---
DIRECTOR OF SUPPLY CHAIN CLOSING NOTES PT IS LYING ON BED,READY FOR DISCHARGE.ALL THE DISCHARGE MEDICATIONS AND INSTRUCTIONS EXPLAINED WITH THE FAMILY.ON 3L O2 VIA NC,SATURATING WELL.NO SOB AND ACUTE DISTRESS NOTED.ENDORSED TO INSURANCE PREMIUM AUDITOR SHEYLA MCFALRAND ABOUT THE DISCHARGE ORDERS,COUMADIN MEDICATION CLARIFICATION AND TO REMOVE THE IV BEFORE GETTING DISCHARGE AND TRY TO CALL AGAIN THE HALFWAY CANDICE MOLINA TO GIVE PT REPORT.
--- NOTE | 2019-05-15 19:58 | NUR ---
RN NOTE CALLED FREDI MOLINA TO PROVIDE REPORT, REPORT GIVEN TO JAGJIT CARRION INTERN BRAND, ADMISSION DOCUMENTS WERE PREPARED BY AM NURSE, PATIENT IS STABLE, WILL CONTINUE TO MONITOR
[2019-05-15 20:00] VITALS: BP 155/58
[2019-05-15] MEDS: CEFTRIAXONE 1 G in IV D5W 50 ML IV SCH (20:43)
--- NOTE | 2019-05-15 21:49 | NUR ---
RN NOTE PATIENT LEFT HOSPITAL IN STABLE CONDITION, NO RESPIRATORY DISTRESS NOTED, BREEN CATH IS INTACT, CLEAR URINE COLOR, AFEBRILE, VITAL SIGNS STABLE, ON NASAL CANULA 3L/MIN, SPO2 98%, BELONGING'S LIST SIGNED, ALL BELONGINGS TAKEN BY THE SISTER, ONE FOLDER OF PATIENT'S HISTORY AND PHYSICAL COPIES PROVIDED TO THE PATIENT AND ANOTHER FOLDER PROVIDED TO AMBULANCE, LEFT FOREARM 20 GAUGE IS INTACT, NO S/S OF INFECTION/INFILTRATION, RIGHT FOREARM 22 GAUGE NO S/S OF INFECTION/INFILTRATION NOTED, ALL SAFETY MEASURES TAKEN
== END 2019-05-15 22:52 | DRG 871 ==
LOC: ER 19:57 → TELE 23:24 → MED 05-08 09:23 → TELE 05-09 18:47 → ICU 05-09 19:27 → TELE1 05-14 11:56
PROVIDERS: ADMIT Internal Medicine; ATTEND Nurse Practitioner Acute Care
DX: A41.9 Sepsis, unspecified organism (principal); G93.41 Metabolic encephalopathy; N17.0 Acute kidney failure with tubular necrosis; I21.A1 Myocardial infarction type 2; I50.33 Acute on chronic diastolic (congestive) heart failure; J18.9 Pneumonia, unspecified organism; J96.01 Acute respiratory failure with hypoxia; N39.0 Urinary tract infection, site not specified; D68.59 Other primary thrombophilia; E87.0 Hyperosmolality and hypernatremia; E87.2 Acidosis; J98.11 Atelectasis; I48.91 Unspecified atrial fibrillation; R62.7 Adult failure to thrive; Z88.1 Allergy status to other antibiotic agents; Z88.8 Allergy status to other drugs, medicaments and biological substances; I25.10 Atherosclerotic heart disease of native coronary artery without angina pectoris; Z79.01 Long term (current) use of anticoagulants; E86.9 Volume depletion, unspecified; E83.42 Hypomagnesemia; I11.0 Hypertensive heart disease with heart failure; R31.9 Hematuria, unspecified; E87.6 Hypokalemia; R73.9 Hyperglycemia, unspecified; F03.90 Unspecified dementia, unspecified severity, without behavioral disturbance, psychotic disturbance, mood disturbance, and anxiety; L60.3 Nail dystrophy
CPT/HCPCS: 36415; 36600; 71045-TC; 80048-TC; 80053-TC; 80061-TC; 80076-TC; 81000-TC; 82803-TC; 82962-TC; 83605-TC; 83690-TC; 83735-TC; 84100-TC; 84443-TC; 84484-TC; 85025-TC; 85610-TC; 85730-TC; 87040-TC; 87081-TC; 87086-TC; 87186-TC; 93307-TC; 94664-TC; 94760-TC; 94799-TC; 97110-TC; 97116-TC; 97530-TC; 97535-TC; G0378; J0456; J0696; J1940; J3475; J3490; J7030; J7050; J7060